=== PATIENT | female | born 2000 | race Caucasian/White ===

== ENCOUNTER 2021-01-24 12:13 | Emergency (ER) | payer BC, MEDICAID ==
[~2021-01-24] VITALS: Ht 170.2 cm; Wt 83.9 kg
[2021-01-24 12:30] VITALS: BP_SYST 127
--- NOTE | 2021-01-24 12:30 | NUR ---
PT TO BED 6 FOR EVALUATION.
--- NOTE | 2021-01-24 12:35 | NUR ---
PT AAO AND AMBULATORY REPORTED SYNCOPE YESTERDAY WHERE SHE HIT HER HEAD ON THE LEFT FOREHEAD. SINCE THEN, PT REPORTS EXCESSIVE SHAKING AND HAS HISTORY OF SEIZURES. PT REPORTS HAVING 4 SEIZURES YESTERDAY AND STATED THAT SHE DISCONTINUED HER KEPPRA BECAUSE SHE IS 7 WEEKS PREGANT. PT REPORTS 8/10 PAIN SCALE.
--- NOTE | 2021-01-24 12:39 | NUR ---
DR. HENDERSON AT BEDSIDE TO ASSESS.
[2021-01-24 13:15] LABS: BASOPHILS % (AUTO) 0.6 % (0.0-2.0); EOSINOPHILS % (AUTO) 0.5 % (0.0-4.0); HEMATOCRIT 37.6 % (36-48); HEMOGLOBIN 12.9 g/dL (12.0-16.0); LYMPHOCYTES # (AUTO) 2.8 K/uL (1.0-5.5); LYMPHOCYTES % (AUTO) 34.3 % (20.5-51.5); MEAN CORPUSCULAR HEMOGLOBIN 28 pg (27-31); MEAN CORPUSCULAR HGB CONC 34 % (32-36); MEAN CORPUSCULAR VOLUME 82 fL (79.0-98.0); MONOCYTES # (AUTO) 0.6 K/uL (0.0-1.0); MONOCYTES % (AUTO) 7.4 % (1.7-9.3); NEUTROPHILS # (AUTO) 4.7 K/uL (1.8-7.7); NEUTROPHILS % (AUTO) 57.2 % (40.0-70.0); PLATELET COUNT (AUTO) 358 K/uL (130-430); RED BLOOD CELL COUNT(AUTO) 4.58 MIL/uL (4.2-6.2); RED CELL DISTRIBUTION WIDTH 14.4 % (9.0-15.0); WHITE BLOOD COUNT (AUTO) 8.2 K/uL (4.5-11.0)
[2021-01-24 13:26] LABS: CALCIUM 9.3 mg/dL (8.4-11.0); CREATININE 0.7 mg/dL (0.55-1.30); POTASSIUM 3.6 mmol/L (3.5-5.1)
--- NOTE | 2021-01-24 13:49 | NUR ---
Pt in [facility], resting comfortably at this time
[2021-01-24 13:51] LABS: ALBUMIN 3.4 g/dL (3.4-4.8); TOTAL BILIRUBIN 1.2 mg/dL (0.0-1.0)
[2021-01-24 13:59] LABS: BARBITURATE, URINE NEGATIVE (NEG <=200); BENZODIAZEPINE, URINE NEGATIVE (NEG <=150); CANNABINOID, URINE POSITIVE (NEG <=50); COCAINE, URINE NEGATIVE (NEG <=150); METHAMPHETAMINES SCREEN,URINE NEGATIVE (NEG <=500); OPIATE, URINE NEGATIVE (NEG <=100); PHENCYCLIDINE SCREEN,URINE NEGATIVE (NEG <=25); UR TRICYCLIC ANTIDEPRESSANTS NEGATIVE (NEG <=300); URINE AMPHETAMINE NEGATIVE (NEG <=500); URINE METHADONE NEGATIVE (NEG <=200); URINE OXYCODONE SCREEN NEGATIVE (NEG <=100); URINE PROPOXYPHENE SCREEN NEGATIVE (NEG <=300)
[2021-01-24 15:55] VITALS: BP_SYST 127
--- NOTE | 2021-01-24 15:55 | NUR ---
Patient given written and verbal discharge instructions and verbalizes understanding. ER MD discussed with patient the results and treatment provided. Patient in stable condition. ID arm band removed. No Rx given. Patient educated on pain management and to follow up with PMD. Pain Scale 0/10. Opportunity for questions provided and answered. Medication side effect fact sheet provided.
== END 2021-01-24 15:55 | disposition home or self-care (01) ==
LOC: SED 12:13
DX: O9A.211 Injury, poisoning and certain other consequences of external causes complicating pregnancy, first trimester (principal); S09.90XA Unspecified injury of head, initial encounter; G40.909 Epilepsy, unspecified, not intractable, without status epilepticus; F43.0 Acute stress reaction; F41.9 Anxiety disorder, unspecified; Z3A.01 Less than 8 weeks gestation of pregnancy
CPT/HCPCS: 36415; 76801; 76817; 80053; 80307; 81002; 81025; 83735; 84702; 85025; 99284

== ENCOUNTER 2021-02-09 19:56 | Emergency (ER) | payer BC, MEDICAID, OTHER ==
[~2021-02-09] VITALS: Ht 172.7 cm; Wt 82.6 kg
[2021-02-09 20:00] VITALS: BP_SYST 114
--- NOTE | 2021-02-09 20:00 | NUR ---
Patient triaged and placed in waiting room. VSS and patient appears in no acute distress at this time. Accompanied by self , awaiting available bed, and MD notified of need for MSE.
--- NOTE | 2021-02-09 20:05 | NUR ---
Pt brought by self, ambulatory, A&Ox4, pt presents to ER with lower abdominal pain and vaginal bleeding, states she is 8 weeks , skin pink and warm, cap refill <3, VSS.
--- NOTE | 2021-02-09 22:37 | NUR ---
Pt A&Ox4, respirations even and unlabored, cap refill <3, will cont to monitor.
[2021-02-09 23:25] LABS: BASOPHILS % (AUTO) 0.3 % (0.0-2.0); EOSINOPHILS % (AUTO) 0.3 % (0.0-4.0); HEMATOCRIT 35.6 % (36-48); HEMOGLOBIN 12.2 g/dL (12.0-16.0); LYMPHOCYTES # (AUTO) 2.3 K/uL (1.0-5.5); LYMPHOCYTES % (AUTO) 18.8 % (20.5-51.5); MEAN CORPUSCULAR HEMOGLOBIN 28 pg (27-31); MEAN CORPUSCULAR HGB CONC 34 % (32-36); MEAN CORPUSCULAR VOLUME 82 fL (79.0-98.0); MONOCYTES # (AUTO) 1.1 K/uL (0.0-1.0); MONOCYTES % (AUTO) 8.7 % (1.7-9.3); NEUTROPHILS # (AUTO) 8.9 K/uL (1.8-7.7); NEUTROPHILS % (AUTO) 71.9 % (40.0-70.0); PLATELET COUNT (AUTO) 277 K/uL (130-430); RED BLOOD CELL COUNT(AUTO) 4.35 MIL/uL (4.2-6.2); WHITE BLOOD COUNT (AUTO) 12.4 K/uL (4.5-11.0)
[2021-02-09 23:39] LABS: INR 0.9 (0.8-1.2); PROTHROMBIN TIME 9.8 SECS (9.5-12.5)
[2021-02-09 23:58] LABS: BILIRUBIN,URINE NEGATIVE (NEGATIVE); BLOOD, URINE 3+ (NEGATIVE); CLARITY/URINE TURBID (CLEAR); COLOR,URINE RED (YELLOW); GLUCOSE,URINE TRACE (NEGATIVE); KETONES,URINE TRACE (NEGATIVE); LEUKOCYTE ESTERASE ,URINE NEGATIVE (NEGATIVE); NITRITE, URINE NEGATIVE (NEGATIVE); PH,URINE 6.5 (5.0-8.0); PROTEIN URINE 3+ (NEGATIVE)
[2021-02-10 00:46] LABS: BACTERIA,URINE FEW /HPF (None Seen); RBC,URINE >100 /HPF (0-3); WBC,URINE 0-3 /HPF (0-3)
--- NOTE | 2021-02-10 01:15 | NUR ---
Patient to ER CHAIR 1 for evaluation. Side rails up.
--- NOTE | 2021-02-10 01:40 | NUR ---
Dr. Mendoza at chair side for MSE
[2021-02-10 01:50] VITALS: BP_SYST 123
--- NOTE | 2021-02-10 01:50 | NUR ---
Patient given written and verbal discharge instructions and verbalizes understanding. ER MD discussed with patient the results and treatment provided. Patient in stable condition. ID arm band removed. Rx of NONE given. Patient educated on pain management and to follow up with PMD. Pain Scale 0/10. Opportunity for questions provided and answered. Medication side effect fact sheet provided.
== END 2021-02-10 01:50 | disposition home or self-care (01) ==
LOC: SED 19:56
DX: O03.9 Complete or unspecified spontaneous abortion without complication (principal)
CPT/HCPCS: 36415; 76805-TC; 81000; 81025; 84702; 85025; 85610-TC; 85730-TC; 86900; 86901; 99285